=== PATIENT | female | born 1950 | race Native Hawaiian/Other Pacific Islander ===

== ENCOUNTER 2021-06-04 14:13 | Emergency (ER) | payer OTHER ==
[~2021-06-04] VITALS: Ht 167.6 cm; Wt 66.2 kg
[2021-06-04 14:46] LABS: PLATELET COUNT 228 K/uL (152-353)
[2021-06-04 14:53] LABS: POTASSIUM 3.8 mmol/L (3.6-5.2)
[2021-06-04 16:25] VITALS: BP 126/64; TEMP 97.5
[2021-06-05] MEDS ORDERED: BUPROPION HYDR150 M1 PO (08:46)
[2021-06-05] MEDS ORDERED: AMIODARONE HYD200 MG PO (08:46)
[2021-06-05] MEDS ORDERED: BUSPIRONE HYDROC5 MG PO (08:47)
[2021-06-05] MEDS ORDERED: DULOXETINE HYDR60 MG PO (08:49)
[2021-06-05] MEDS ORDERED: LEVO-T125 MCG PO (08:50)
[2021-06-05] MEDS ORDERED: ROSUVASTATIN CA10 MG PO (08:52)
[2021-06-05] MEDS ORDERED: TYLENOL325 MG PO (08:53)
[2021-06-05] MEDS ORDERED: DOK100 M1 PO (08:56)
== END 2021-06-04 16:25 | disposition still patient (30) ==
LOC: ED 14:13
PROVIDERS: Emergency Medicine
DX: F22 Delusional disorders (principal); Z11.52 Encounter for screening for COVID-19; Z04.6 Encounter for general psychiatric examination, requested by authority
CPT/HCPCS: 80053; 81000; 85027; 87635; 93005; 99283; U0003

== ENCOUNTER 2022-05-26 14:27 | Emergency (ER) | payer OTHER ==
[~2022-05-26] VITALS: Ht 167.6 cm; Wt 65.3 kg
[~2022-05-26 14:27] MED LIST: AMIODARONE HYD200 MG PO; BUPROPION HYDR150 M1 PO; BUSPIRONE HYDROC5 MG PO; DOK100 M1 PO; DULOXETINE HYDR60 MG PO; ESCI10TA PO; HYDROXYZ HCL50 MG PO; LEVO-T125 MCG PO; RISP0.25 PO; ROSUVASTATIN CA10 MG PO; TRAZODONE HYDR150 MG PO; TYLENOL325 MG PO; [UNRECOGNIZED DRUG - CODE] TOP
[2022-05-26 15:03] LABS: PLATELET COUNT 249 K/uL (152-353)
[2022-05-26 15:13] LABS: POTASSIUM 3.6 mmol/L (3.6-5.2)
[2022-05-26 16:00] VITALS: BP 122/53; TEMP 97
[2022-05-26] MEDS ORDERED: LEXAPRO10 MG PO (18:54)
[2022-05-26] MEDS ORDERED: BOOST PLUS PO (18:55)
[2022-05-26] MEDS ORDERED: HALO5INJ3 IM (18:56)
[2022-05-26] MEDS ORDERED: EUTHYROX100 MCG PO (18:57)
[2022-05-26] MEDS ORDERED: PREMIUM LIDOCAINE5 % TOP (18:58)
[2022-05-26] MEDS ORDERED: ZYPREXA ZYDI5 MG PO (18:59)
[2022-05-26] MEDS ORDERED: LORA0.5T17 PO (19:00)
[2022-05-26] MEDS ORDERED: OXYGEN (19:01)
[2022-05-26] MEDS ORDERED: TRAMADOL HYDROC50 MG PO (19:02)
== END 2022-05-26 16:00 | disposition still patient (30) ==
LOC: ED 14:27
PROVIDERS: Emergency Medicine Emergency Medical Services
DX: G30.9 Alzheimer's disease, unspecified (principal); F02.811 Dementia in other diseases classified elsewhere, unspecified severity, with agitation; Z11.52 Encounter for screening for COVID-19; Z04.6 Encounter for general psychiatric examination, requested by authority; Z79.899 Other long term (current) drug therapy; Z51.81 Encounter for therapeutic drug level monitoring
CPT/HCPCS: 36415; 80053; 81000; 85027; 87086; 87088; 87635; 93005; 99283; U0003

== ENCOUNTER 2022-05-26 19:36 | Emergency (ER) | payer OTHER ==
[~2022-05-26] VITALS: Ht 167.6 cm; Wt 63.0 kg
[2022-05-26 19:36] VITALS: BP 162/87; TEMP 98.7
[~2022-05-26 19:36] MED LIST changes: +BOOST PLUS PO; +EUTHYROX100 MCG PO; +HALO5INJ3 IM; +LEXAPRO10 MG PO; +LORA0.5T17 PO; +OXYGEN; +PREMIUM LIDOCAINE5 % TOP; +TRAMADOL HYDROC50 MG PO; +ZYPREXA ZYDI5 MG PO
== END 2022-05-26 22:00 | disposition still patient (30) ==
LOC: ED 19:36
PROC: 0HQ1XZZ Repair Face Skin, External Approach (ICD-10-PCS; principal; 2022-05-26)
DX: S01.111A Laceration without foreign body of right eyelid and periocular area, initial encounter (principal); S00.83XA Contusion of other part of head, initial encounter; W01.0XXA Fall on same level from slipping, tripping and stumbling without subsequent striking against object, initial encounter; Y92.238 Other place in hospital as the place of occurrence of the external cause
CPT/HCPCS: 99283; J2001

== ENCOUNTER 2022-05-29 07:12 | Emergency (ER) | payer OTHER ==
[~2022-05-29] VITALS: Ht 167.6 cm; Wt 59.0 kg
[2022-05-29 07:14] VITALS: TEMP 97.3
[2022-05-29 09:37] VITALS: BP 101/66
== END 2022-05-29 09:38 | disposition still patient (30) ==
LOC: ED 07:12
DX: R29.6 Repeated falls (principal); F03.90 Unspecified dementia, unspecified severity, without behavioral disturbance, psychotic disturbance, mood disturbance, and anxiety
CPT/HCPCS: 99283

== ENCOUNTER 2022-06-02 21:14 | Emergency (ER) | payer OTHER ==
[~2022-06-02] VITALS: Ht 167.6 cm; Wt 56.7 kg
[2022-06-02 21:30] VITALS: BP 100/58; TEMP 97.8
== END 2022-06-02 22:10 | disposition still patient (30) ==
LOC: ED 21:14
DX: R29.6 Repeated falls (principal); Z48.02 Encounter for removal of sutures; W07.XXXA Fall from chair, initial encounter; Y92.238 Other place in hospital as the place of occurrence of the external cause
CPT/HCPCS: 99283